=== PATIENT | male | born 1955 | race Caucasian/White ===

== ENCOUNTER 2016-06-12 13:44 | Emergency (ER) | payer OTHER ==
[~2016-06-12] VITALS: Ht 170.2 cm; Wt 70.0 kg
[~2016-06-12 13:44] MED LIST: ERYTOIN10 RIGHT EYE; HYDR-3516 PO; IBUP-232 PO; LISI-515 PO
[2016-06-12 13:53] VITALS: BP 189/105; PULSE 86; RESP 18; TEMP 98.5; O2SAT 98
[2016-06-12] MEDS ORDERED: SODIUM CHLOR 0.9% 1000 ML INJ 1,000 ML IV SCH (14:10)
[2016-06-12] MEDS ORDERED: ONDANSETRON HCL 4 MG/2 ML VIAL IVP ONE (14:15)
[2016-06-12 14:25] LABS: AUTOMATED NEUTROPHIL # 4.2 TH/MM3 (1.8-7.7); BASOPHIL % 0.6 % (0.0-2.0); EOSINOPHIL # 0.2 TH/MM3 (0-0.4); EOSINOPHIL % 2.2 % (0.0-4.0); HEMATOCRIT 33.3 % (39.0-51.0); HEMO FLAGS DIFF FINAL; LYMPH % 33.8 % (9.0-44.0); LYMPHOCYTE # 2.5 TH/MM3 (1.0-4.8); MEAN CELL VOLUME 77.1 FL (80.0-100.0); MEAN CORPUSCULAR HEMOGLOBIN 25.3 PG (27.0-34.0); MEAN CORPUSCULAR HGB CONC 32.8 % (32.0-36.0); MONO % 7.5 % (0.0-8.0); NEUT % 55.9 % (16.0-70.0); PLATELET COUNT 255 TH/MM3 (150-450); RED BLOOD COUNT 4.32 MIL/MM3 (4.50-5.90); RED CELL DISTRIBUTION WIDTH 16.2 % (11.6-17.2); WHITE BLOOD COUNT 7.4 TH/MM3 (4.0-11.0)
[2016-06-12 14:35] LABS: APTT (PATIENT) 27.3 SEC (24.3-30.1)
--- NOTE | 2016-06-12 14:39 | RADRPT ---
EXAM DATE/TIME: 06/12/2016 14:31 [facility] COMPARISON: CHEST SINGLE AP, March 19, 2016, 20:57. INDICATIONS : Short of breath, vomiting. MEDICAL HISTORY : None. SURGICAL HISTORY : None. ENCOUNTER: Initial ACUITY: 1 day PAIN SCORE: Non-responsive. LOCATION: Bilateral chest FINDINGS: Single AP view of the lungs demonstrates bilateral reticular airspace density, unchanged from prior N ovember 2005 exam. No evidence of pneumothorax or focal airspace consolidation. The cardiomediastinal contours are unremarkable. Osseous structures are intact. CONCLUSION: Stable appearance of the lungs consistent with interstitial lung disease. No acute ab normality seen. Caroline Munoz MD on June 12, 2016 at 14:37 Board Certified Radiologist. This report was verified electronically.
[2016-06-12 14:42] LABS: ANION GAP 9 MEQ/L (5-15); AST (GOT) 7 U/L (15-37); BLOOD UREA NITROGEN 13 MG/DL (7-18); CHLORIDE 106 MEQ/L (98-107); GLOMERULAR FILTRATION RATE 76 ML/MIN (>89); POTASSIUM 3.8 MEQ/L (3.5-5.1); SODIUM (NA) 140 MEQ/L (136-145)
[2016-06-12 14:46] LABS: ALKALINE PHOSPHATASE 105 U/L (45-117); ALT (GPT) 9 U/L (12-78); TOTAL BILIRUBIN ADULT 0.2 MG/DL (0.2-1.0)
--- NOTE | 2016-06-12 14:56 | PD ---
HPI Chief Complaint: GI Complaint Time Seen by Provider: 14:52 Travel History International Travel<30 days: No Contact w/Intl Traveler<30days: No Traveled to known affect area: No History of Present Illness HPI 61-year-old male that presents to the ED for evaluation of nausea and vomiting since this morning. Per patient she's been feeling dizzy as well. Per patient on he was doing was going outside to take a smoker and then he started having the symptoms. Per patient he has thrown up multiple times. Per patient he feels like the room spinning. He denies any ear pain. No fevers chills or sweats. No new foods or travel. No history of heart disease or CVA. Denies any blood thinners. No blood in the vomit. No urinary or bowel movement issues. No chest pain or shortness of breath. No abdominal pain. The patient also he feels very dizzy as if the room was spinning. I did witness patient vomiting greenish/yellowish fluid. Patient states that he had something similar to this years ago he cannot really tell me what he was diagnosed with. He denies any recent travel. No recent injury. No falls. Patient came here by ambulance for evaluation of this. In his any history of diabetes. Denies any surgeries to the abdomen or chest. PFSH Past Medical History Diminished Hearing: No Hypertension: Yes Musculoskeletal: Yes (JOINT PAIN IN LEG) Tetanus Vaccination: > 5 Years Influenza Vaccination: No ?: Not Social History Alcohol Use: No Tobacco Use: Yes (1.5 PPD) Substance Use: No Allergies-Medications (Allergen,Severity, Reaction): Coded Allergies: Codeine (Verified Allergy, Severe, ITCHING, SWELLING, 06/12/16) Reported Meds & Prescriptions Reported Meds & Active Scripts Active Reported Lisinopril 20 Mg Tab 20 Mg PO DAILY Review of Systems Except as stated in HPI: all other systems reviewed are Neg Physical Exam Narrative GENERAL: SKIN: Warm and dry. HEAD: Atraumatic. Normocephalic. EYES: Pupils equal and round 4 mm reactive to light and accommodation. No scleral icterus. No injection or drainage. ENT: No nasal bleeding or discharge. Mucous membranes pink and moist. Tongue is midline. No uvula deviation. NECK: Trachea midline. No JVD. CARDIOVASCULAR: Regular rate and rhythm. No murmurs, S3, S4. RESPIRATORY: No accessory muscle use. Clear to auscultation. Breath sounds equal bilaterally. GASTROINTESTINAL: Abdomen soft, non-tender, nondistended. Hepatic and splenic margins not palpable. MUSCULOSKELETAL: Extremities without clubbing, cyanosis, or edema. No obvious deformities. Full range of motion of the upper and lower extremities bilaterally. 2+ pulses bilaterally. NEUROLOGICAL: Awake and alert. No obvious cranial nerve deficits. Motor grossly within normal limits. Five out of 5 muscle strength in the arms and legs. Normal speech. PSYCHIATRIC: Appropriate mood and affect; insight and judgment normal. Data Data Last Documented VS Vital Signs Date Time Temp Pulse Resp B/P Pulse Ox O2 Delivery O2 Flow Rate FiO2 06/12/16 16:29 85 16 208/103 99 Room Air 06/12/16 13:53 98.5 Orders Complete Blood Count With Diff (06/12/16 14:03) Comprehensive Metabolic Panel (06/12/16 14:03) Iv Access Insert/Monitor (06/12/16 14:03) Oxygen Administration (06/12/16 14:03) Oximetry (06/12/16 14:03) Lipase (06/12/16 14:03) Act Partial Throm Time (Ptt) (06/12/16 14:03) Lactic Acid (06/12/16 14:10) Ondansetron Inj (Zofran Inj) (06/12/16 14:15) Sodium Chlor 0.9% 1000 Ml Inj (Ns 1000 M (06/12/16 14:10) Chest, Single Ap (06/12/16 14:15) Ct Brain W/O Iv Contrast(Rout) (06/12/16 14:15) Ct Abd/Pel W Iv Contrast(Rout) (06/12/16 14:15) Electrocardiogram (06/12/16 14:15) Ckmb (Isoenzyme) Profile (06/12/16 14:15) Troponin I (06/12/16 14:15) Meclizine (Antivert) (06/12/16 15:00) Iohexol 350 Inj (Omnipaque 350 Inj) (06/12/16 15:18) Orthostatic Vital Signs (06/12/16 15:59) Labs Laboratory Tests Test 06/12/16 06/12/16 14:00 14:35 White Blood Count 7.4 TH/MM3 Red Blood Count 4.32 MIL/MM3 Hemoglobin 10.9 GM/DL Hematocrit 33.3 % Mean Corpuscular Volume 77.1 FL Mean Corpuscular Hemoglobin 25.3 PG Mean Corpuscular Hemoglobin 32.8 % Concent Red Cell Distribution Width 16.2 % Platelet Count 255 TH/MM3 Mean Platelet Volume 7.4 FL Neutrophils (%) (Auto) 55.9 % Lymphocytes (%) (Auto) 33.8 % Monocytes (%) (Auto) 7.5 % Eosinophils (%) (Auto) 2.2 % Basophils (%) (Auto) 0.6 % Neutrophils # (Auto) 4.2 TH/MM3 Lymphocytes # (Auto) 2.5 TH/MM3 Monocytes # (Auto) 0.6 TH/MM3 Eosinophils # (Auto) 0.2 TH/MM3 Basophils # (Auto) 0.0 TH/MM3 CBC Comment DIFF FINAL Differential Comment Activated Partial 27.3 SEC Thromboplast Time Sodium Level 140 MEQ/L Potassium Level 3.8 MEQ/L Chloride Level 106 MEQ/L Carbon Dioxide Level 25.0 MEQ/L Anion Gap 9 MEQ/L Blood Urea Nitrogen 13 MG/DL Creatinine 1.00 MG/DL Estimat Glomerular Filtration 76 ML/MIN Rate Random Glucose 110 MG/DL Calcium Level 8.4 MG/DL Total Bilirubin 0.2 MG/DL Aspartate Amino Transf 7 U/L (AST/SGOT) Alanine Aminotransferase 9 U/L (ALT/SGPT) Alkaline Phosphatase 105 U/L Total Creatine Kinase 45 U/L Troponin I LESS THAN 0.02 NG/ML Total Protein 7.9 GM/DL Albumin 3.0 GM/DL Lipase 67 U/L Lactic Acid Level 1.3 mmol/L [facility] Medical Decision Making Medical Screen Exam Complete: Yes Emergency Medical Condition: Yes Medical Record Reviewed: Yes Interpretation(s) CBC & BMP Diagram 06/12/16 14:00 LFts and lipase WNL lactic acid WNL Last Impressions Head CT 06/12/16 1415 Signed Impressions: Service Date/Time: May 15:13 - CONCLUSION: No acute intracranial abnormality is identified. Nigel Parisi MD Chest X-Ray 06/12/16 1415 Signed Impressions: Service Date/Time: May 14:31 - CONCLUSION: Stable appearance of the lungs consistent with interstitial lung disease. No acute abnormality seen. Caroline Munoz MD Abdomen/Pelvis CT 06/12/16 1415 Signed Impressions: Service Date/Time: May 15:19 - CONCLUSION: 1. Cholelithiasis. No CT evidence of cholecystitis. 2. Diverticulosis of the descending and sigmoid colon. No evidence of adjacent inflammatory change or abscess. 3. Chronic interstitial lung disease involving the lung bases. 4. Bilateral renal cysts. No evidence of stones or hydronephrosis. Caroline Munoz MD EKG shows sinus rhythm with no sign of acute ischemia or arrhythmia. Troponin and CK-MB negative. Differential Diagnosis Dehydration versus little abnormality versus obstruction versus pancreatitis versus acute abdomen versus vomiting versus ACS versus CVA versus vertigo Narrative Course 61-year-old male that presents to the ED for evaluation of nausea and vomited by ambulance. Patient was properly examined and was found to have signs and symptoms consistent with nausea and vomiting. Unclear etiology at this time. Patient doesn't really have any other complaints other than the dizziness. He is neurovascularly intact at this time. There for concern for possible CVA and ACS present although less likely. I do recommend labs and imaging. Patient is agreeable with this. Patient was given IV fluids. Patient was also given Zofran. Labs and imaging showed no sign of acute disease. Some cholelithiasis and diverticulosis but no sign of infection. Patient was also given meclizine and had resolution of symptoms. Patient feels improved. Patient's blood pressure is high and he does have a history of hypertension and takes blood pressure medications but hasn't taken his today. Patient will be sent home with prescription for Zofran and meclizine. Case was discussed with my attending Dr. Menard who was medically aware of all findings and agrees with plan. Patient was told what to look for. If anything worsens he is to come back to the ED. He agrees with plan. See ED worsening symptoms. Follow with PCP. Diagnosis Primary Impression: Vertigo Additional Impression: Vomiting Qualified Code: R11.2 - Non-intractable vomiting with nausea, unspecified vomiting type Patient Instructions: General Instructions Additional Instructions: Take medications as prescribed. Follow-up with PCP. See ED for any worsening symptoms. Drink plenty of fluids. Med/Other Pt SpecificInfo: Prescription(s) given Disposition: DISCHARGE HOME Condition: Stable Rayray Huber Jun 12, 2016 14:56
[2016-06-12] MEDS ORDERED: MECLIZINE HCL 25 MG TAB PO ONE (15:00)
[2016-06-12] MEDS ORDERED: IOHEXOL 350 MG/ML 10 ML VIAL (for RAD DIAG) IV ONE (15:18)
--- NOTE | 2016-06-12 15:21 | RADRPT ---
EXAM DATE/TIME: 06/12/2016 15:13 [facility] COMPARISON: No previous studies available for comparison. INDICATIONS : Generalized weakness with dizziness. RADIATION DOSE: 47.65 CTDIvol (mGy) MEDICAL HISTORY : Hypertension. SURGICAL HISTORY : None. ENCOUNTER: Initial ACUITY: 1 day PAIN SCALE: 0/10 LOCATION: cranial TECHNIQUE: Multiple contiguous axial images were obtained of the head. Using automated exposure control and adj ustment of the mA and/or kV according to patient size, radiation dose was kept as low as reasonably a chievable to obtain optimal diagnostic quality images. FINDINGS: CEREBRUM: There is mild cerebral atrophy. Ventricles are normal in size. No evidence of midline shift, mass le deejay, hemorrhage or acute infarction. No extra-axial fluid collections are seen. POSTERIOR FOSSA: The cerebellum and brainstem demonstrate no acute finding. The 4th ventricle is midline. The cerebe llopontine angle is unremarkable. EXTRACRANIAL: Visualized sinuses are clear. SKULL: The calvaria is intact. No evidence of skull fracture. CONCLUSION: No acute intracranial abnormality is identified. Nigel Parisi MD on June 12, 2016 at 15:18 Board Certified Radiologist. This report was verified electronically.
--- NOTE | 2016-06-12 15:47 | RADRPT ---
EXAM DATE/TIME: 06/12/2016 15:19 [facility] COMPARISON: No previous studies available for comparison. INDICATIONS : Nausea, vomiting, and abdominal pain. IV CONTRAST: 80 cc Omnipaque 350 (iohexol) IV ORAL CONTRAST: No oral contrast ingested. RADIATION DOSE: 5.84 CTDIvol (mGy) MEDICAL HISTORY : Hypertension. SURGICAL HISTORY : None. ENCOUNTER: Initial ACUITY: 1 day PAIN SCALE: 6/10 LOCATION: Abdomen/pelvis TECHNIQUE: Volumetric scanning of the abdomen and pelvis was performed. Using automated exposure control and adjustment of the mA and/or kV according to patient size, radiation dose was kept as low as reasonably achievable to obtain optimal diagnostic quality images. FINDINGS: LOWER LUNGS: The lung bases demonstrate bilateral areas of interstitial thickening and areas of h oneycombing identified within the subpleural right lung. There is diffuse hazy groundglass opacity se en throughout the lung bases, likely secondary to interstitial thickening. The heart size is mildly e nlarged. Moderate coronary artery disease is noted. No evidence of pericardial effusion. LIVER: Homogeneous density without lesion. There is no dilation of the biliary tree. Multiple ca lcified gallstones identified within the gallbladder. No adjacent fluid SPLEEN: Normal size without lesion. PANCREAS: Within normal limits. KIDNEYS: The kidneys demonstrate multiple well-circumscribed simple appearing cysts. This is seen within the midpole the right kidney measuring 2.5 cm and multiple cysts are identified within the lo wer pole of left kidney the largest of which measures 4.1 cm. There is a small nonobstructing left-si ded renal stone present. No evidence of hydronephrosis or hydroureter.. ADRENAL GLANDS: Within normal limits. VASCULAR: There is no aortic aneurysm. BOWEL/MESENTERY: The stomach, small bowel, and colon demonstrate no acute abnormality. There is no free intraperitoneal air or fluid. Diverticulosis of the descending and sigmoid colon. No evidence of adjacent inflammatory change. No evidence of abscess. ABDOMINAL WALL: Within normal limits. RETROPERITONEUM: There is no lymphadenopathy. BLADDER: No wall thickening or mass. The bladder appears well-distended. REPRODUCTIVE: Within normal limits. INGUINAL: There is no lymphadenopathy or hernia. MUSCULOSKELETAL: Within normal limits for patient age. CONCLUSION: 1. Cholelithiasis. No CT evidence of cholecystitis. 2. Diverticulosis of the descending and sigmoid colon. No evidence of adjacent inflammatory change or abscess. 3. Chronic interstitial lung disease involving the lung bases. 4. Bilateral renal cysts. No evidence of stones or hydronephrosis. Caroline Munoz MD on June 12, 2016 at 15:40 Board Certified Radiologist. This report was verified electronically.
[2016-06-12 16:29] VITALS: BP_SYST 194; BP_SYST 201; BP_SYST 208; BP_DIAS 102; BP_DIAS 103; BP_DIAS 112; PULSE 85; RESP 16; RESP 17; O2SAT 99
[2016-06-12 17:27] LABS: CREATINE KINASE 45 U/L (39-308)
[2016-06-12] MEDS ORDERED: ZOFR4TAB PO (17:40)
[2016-06-12] MEDS ORDERED: MECL-62 PO (17:40)
[2016-06-12 18:04] VITALS: BP 222/105
[2016-06-12] MEDS ORDERED: LISINOPRIL 20 MG TAB PO ONE (18:15)
--- NOTE | 2016-06-13 16:38 | EKG ---
Date Performed: 06/12/2016 Time Performed: 16:22:13 PTAGE: 61 years EKG: Sinus rhythm WITH FREQUENT SUPRAVENTRICULAR PREMATURE COMPLEXES VOLTAGE CRITERIA FOR LVH ABNORMAL ECG PREVIOUS TRACING : 10/09/2010 18.55 Compared to prior tracing no significant change DOCTOR: Geovanni Marte Interpretating Date/Time 06/13/2016 16:36:55
== END 2016-06-12 18:21 | disposition home or self-care (01) ==
LOC: NEDAMB 13:44
DX: R42 Dizziness and giddiness (principal); R11.2 Nausea with vomiting, unspecified; I10 Essential (primary) hypertension; R94.31 Abnormal electrocardiogram [ECG] [EKG]; F17.200 Nicotine dependence, unspecified, uncomplicated; Z87.39 Personal history of other diseases of the musculoskeletal system and connective tissue
CPT/HCPCS: 70450; 71010; 74177; 80053; 82550; 83605; 83690; 84484; 85025; 85730; 93005; 96361; 96374; 99284; J2405; J7030; Q9967

== ENCOUNTER 2016-06-13 12:06 | Emergency (ER) | payer OTHER ==
[~2016-06-13] VITALS: Ht 170.2 cm; Wt 70.0 kg
[~2016-06-13 12:06] MED LIST changes: -ERYTOIN10 RIGHT EYE; -HYDR-3516 PO; -IBUP-232 PO; +MECL-62 PO; +ZOFR4TAB PO
[2016-06-13 12:19] VITALS: BP 209/102; PULSE 83; RESP 20; TEMP 97.8; O2SAT 98
[2016-06-13] MEDS ORDERED: ENALAPRILAT 2.5 MG/2 ML VIAL IV PUSH ONE (12:30)
[2016-06-13] MEDS: SODIUM CHLORIDE 0.9% FLUSH 5 ML FLUSH IVF PRN ×2 (12:40→12:58)
--- NOTE | 2016-06-13 12:40 | PD ---
HPI Chief Complaint: Dizziness Time Seen by Provider: 12:32 Travel History International Travel<30 days: No Contact w/Intl Traveler<30days: No Traveled to known affect area: No History of Present Illness HPI Pleasant 61-year-old male here with complaint of vertigo. The patient states that he has a history of vertigo, in fact was seen in our emergency department yesterday for this. Patient had significant workup including CT imaging, EKG, laboratory testing that was all negative. He was treated symptomatically with meclizine, antiemetics and antihypertensives and felt significantly improved, was able ambulate independently and discharged home. Patient left here in the evening yesterday and did not get his prescriptions filled. This morning patient woke up again with complaint of vertigo. He does not have any associated headache, tinnitus, pressure in the ear, rhinorrhea or nasal congestion. No chest pain, shortness of breath or palpitations. Feels slightly nauseous but no vomiting. Patient states "just give me that meclizine so I can feel better". PFSH Past Medical History Diminished Hearing: No Hypertension: Yes Musculoskeletal: Yes (JOINT PAIN IN LEG) Neurologic: Yes (vertigo) Immunizations Current: No Influenza Vaccination: No Past Surgical History Surgical History: No Previous Surgery Social History Alcohol Use: No Tobacco Use: Yes (1.5 PPD) Substance Use: No Allergies-Medications (Allergen,Severity, Reaction): Coded Allergies: Codeine (Verified Allergy, Severe, ITCHING, SWELLING, 06/13/16) Reported Meds & Prescriptions Reported Meds & Active Scripts Active Zofran (Ondansetron HCl) 4 Mg Tab 4 Mg PO Q6HR PRN Meclizine (Meclizine HCl) 25 Mg Tab 25 Mg PO TID PRN Reported Lisinopril 20 Mg Tab 20 Mg PO DAILY Review of Systems Except as stated in HPI: all other systems reviewed are Neg Physical Exam Narrative GENERAL: male in no acute distress sitting in bed with eyes closed SKIN: Warm and dry. HEAD: Normocephalic. EYES: Pupils equal and round. Extraocular movements intact without nystagmus. No scleral icterus. No injection or drainage. ENT: No nasal bleeding or discharge. Mucous membranes pink and moist. NECK: Supple CARDIOVASCULAR: Regular rate and rhythm. No murmur appreciated. RESPIRATORY: No accessory muscle use. Clear to auscultation. Breath sounds equal bilaterally. GASTROINTESTINAL: Abdomen soft, non-tender, nondistended. MUSCULOSKELETAL: Moves all extremities normally NEUROLOGICAL: Awake and alert. No obvious cranial nerve deficits. Motor grossly within normal limits. Normal speech. Test of skew and head impulse testing normal. PSYCHIATRIC: Appropriate mood and affect; insight and judgment normal. Data Data Last Documented VS Vital Signs Date Time Temp Pulse Resp B/P Pulse Ox O2 Delivery O2 Flow Rate FiO2 06/13/16 13:55 70 178/84 06/13/16 12:19 97.8 20 98 Orders Iv Access Insert/Monitor (06/13/16 12:30) Ecg Monitoring (06/13/16 12:30) Oximetry (06/13/16 12:30) Sodium Chloride 0.9% Flush (Ns Flush) (06/13/16 12:30) Electrocardiogram (06/13/16 12:30) Enalaprilat Inj (Vasotec Inj) (06/13/16 12:30) Meclizine (Antivert) (06/13/16 12:45) Ondansetron Inj (Zofran Inj) (06/13/16 12:45) Lorazepam Inj (Ativan Inj) (06/13/16 14:00) MDM Medical Decision Making Medical Screen Exam Complete: Yes Emergency Medical Condition: Yes Medical Record Reviewed: Yes Differential Diagnosis 61-year-old male with history of vertigo here with complaint of same. Differential includes BPPV, Mnire's, labyrinthitis. Less likely [employer] REPRES[employer]IVE source given history of same, normal neurologic examination and negative CT brain yesterday. Narrative Course Patient placed on monitor, IV established. Patient given 2.5 mg enalapril IV for hypertension, meclizine and Zofran. Twelve-lead EKG showed sinus rhythm with evidence of LVH. Patient felt improved but was still slightly unsteady when ambulating. Was given Ativan with resolution of his symptoms and requesting to go at this time. Diagnosis Primary Impression: Vertigo Additional Impression: Hypertension Qualified Code: I10 - Essential hypertension Referrals: Primary Care Physician as needed Additional Instructions: Continue home medications as prescribed. Med/Other Pt SpecificInfo: No Change to Meds Disposition: 01 DISCHARGE HOME Condition: Stable Cate Walsh MD Jun 13, 2016 12:40
[2016-06-13] MEDS ORDERED: MECLIZINE HCL 25 MG TAB PO ONE (12:45)
[2016-06-13] MEDS ORDERED: ONDANSETRON HCL 4 MG/2 ML VIAL IVP ONE (12:45)
[2016-06-13 13:17] VITALS: BP 174/83; PULSE 69
[2016-06-13 13:55] VITALS: BP 178/84; PULSE 70
[2016-06-13] MEDS ORDERED: LORazepam 2 MG/ML VIAL IV PUSH ONE (14:00)
--- NOTE | 2016-06-14 12:20 | EKG ---
Date Performed: 06/13/2016 Time Performed: 12:53:48 PTAGE: 61 years EKG: Sinus rhythm WITH OCCASIONAL SUPRAVENTRICULAR PREMATURE COMPLEXES BORDERLINE LEFT AXIS DEVIATION MODERATE VOLTAGE CRITERIA FOR LVH, CONSIDER NORMAL VARIANT NONSPECIFIC T-WAVE ABNORMALITY BORDERLINE ECG PREVIOUS TRACING : 06/13/2016 12.51 Compared to prior tracing no significant change DOCTOR: Edmond Boles Interpretating Date/Time 06/14/2016 12:18:36
== END 2016-06-13 15:30 | disposition home or self-care (01) ==
LOC: NEDAMB 12:06
DX: R42 Dizziness and giddiness (principal); I10 Essential (primary) hypertension; F17.200 Nicotine dependence, unspecified, uncomplicated
CPT/HCPCS: 93005; 96374; 96375; 99283; J2060; J2405